=== PATIENT | male | born 1955 | race Caucasian/White ===

== ENCOUNTER 2017-06-11 08:57 | Day surgery (SDC) | payer MEDICAID ==
[2017-06-09 11:32] VITALS: BMI 29.2
[2017-06-11] MEDS ORDERED: Midazolam 2 MG/2 ML VIAL ONE (09:54)
[2017-06-11] MEDS ORDERED: Propofol 10 mg/ml Inj (20 ML) ONE (09:54)
[2017-06-11] MEDS ORDERED: Ciprofloxacin 400mg/200ml D5W 400 MG/200 ML BAG IVPB ONE (10:08)
[2017-06-11] MEDS ORDERED: Lidocaine 2% Jelly (Uro-Jet) ONE (10:28)
[2017-06-11] MEDS ORDERED: Lactated Ringer's 1,000 ML IV ONE (10:30)
[2017-06-11] MEDS ORDERED: HYDROmorphone 0.5 mg/0.5 ml ISec IVP PRN (10:53)
[2017-06-11 12:25] VITALS: TEMP 97
[2017-06-11 12:26] VITALS: BP 122/73; PULSE 73; RESP 18; O2SAT 99
--- NOTE | 2017-06-11 17:17 | OP ---
PROCEDURE DATE: PREOPERATIVE DIAGNOSES: Prostatic hypertrophy, outlet obstruction. POSTOPERATIVE DIAGNOSES: Submeatal stenosis, prostatic hypertrophy. DESCRIPTION OF PROCEDURE: While the patient in the lithotomy position, after starting sedation, the patient getting Cipro 400 IV piggyback, genitalia prepped and draped in the sterile fashion. Cysto revealed submeatal stenosis which dilated. After that, the urethra was normal, down to prostatic urethra. Prostatic urethra show bilateral lobe enlargement, causing obstruction of the prostatic urethra. When the scope in the prostatic urethra total occluded. Also, some elevation of the bladder neck. Prostatic urethra 3.2 cm. The bladder itself had no tumor, no stone, 1+trabeculation. Trigone within normal limits. The patient tolerated the procedure well. After removing the scope, the patient transferred to the recovery in stable condition. Ayesha Choi MD
== END 2017-06-11 13:01 | disposition home or self-care (01) ==
LOC: C.SDS 08:57
PROVIDERS: ATTEND Specialist
DX: N35.9 Urethral stricture, unspecified (principal); N40.0 Benign prostatic hyperplasia without lower urinary tract symptoms; N36.8 Other specified disorders of urethra
CPT/HCPCS: 52281; J0744; J1170; J7120